=== PATIENT | male | born 1995 | race Asian ===

== ENCOUNTER 2017-08-08 01:13 | Emergency (ER) | payer SELFPAY ==
[~2017-08-08] VITALS: Ht 170.2 cm; Wt 68.2 kg
[2017-08-08 04:45] VITALS: BP 124/68
[2017-08-08] MEDS ORDERED: IBUPROFEN 600 MG TABLET PO ONE (05:15)
== END 2017-08-08 05:38 | disposition home or self-care (01) ==
LOC: EMS 01:15
DX: S29.012A Strain of muscle and tendon of back wall of thorax, initial encounter (principal); I10 Essential (primary) hypertension; V43.62XA Car passenger injured in collision with other type car in traffic accident, initial encounter; Y92.488 Other paved roadways as the place of occurrence of the external cause; Y93.89 Activity, other specified; Y99.8 Other external cause status
CPT/HCPCS: 72040; 72070; 72100; 99284